=== PATIENT | male | born 1950 | race Caucasian/White ===

== ENCOUNTER → 2016-10-27 | Outpatient (CLI) | payer OTHER | END | disposition home or self-care (01) | LOC: LAB.O 08:44 | PROVIDERS: ATTEND Internal Medicine Gastroenterology | DX: B18.2 Chronic viral hepatitis C (principal) ==

== ENCOUNTER → 2016-11-10 | Outpatient (CLI) | payer OTHER | LOC: LAB.O 15:45 | PROVIDERS: ATTEND Internal Medicine Gastroenterology | DX: B18.2 Chronic viral hepatitis C (principal) ==

== ENCOUNTER → 2016-12-14 | Outpatient (CLI) | payer OTHER | END | disposition home or self-care (01) | LOC: LAB.O 09:51 | PROVIDERS: ATTEND Internal Medicine Gastroenterology | DX: B18.2 Chronic viral hepatitis C (principal) ==

== ENCOUNTER → 2017-01-04 | Outpatient (CLI) | payer OTHER | END | disposition home or self-care (01) | LOC: LAB.O 10:20 | PROVIDERS: ATTEND Internal Medicine Gastroenterology | DX: B18.2 Chronic viral hepatitis C (principal) ==

== ENCOUNTER → 2017-02-02 | Outpatient (CLI) | payer OTHER | END | disposition home or self-care (01) | LOC: LAB.O 08:39 | PROVIDERS: ATTEND Internal Medicine Gastroenterology | DX: B18.2 Chronic viral hepatitis C (principal) ==

== ENCOUNTER → 2017-02-08 | Outpatient (CLI) | payer OTHER | END | disposition home or self-care (01) | LOC: LAB.O 11:08 | PROVIDERS: ATTEND Internal Medicine Gastroenterology | DX: B18.1 Chronic viral hepatitis B without delta-agent (principal) ==

== ENCOUNTER → 2017-04-05 | Outpatient (CLI) | payer OTHER, MEDICARE ==
--- NOTE | 2017-04-05 11:30 | CT ---
Procedure: CT ABDOMEN PELVIS WITHOUT THEN WITH IV CONTRAST Exam Date: 04/05/2017 Ordering Provider: HARIKA STOUT Clinical Indication: Incisional HERNIA Comparison: None TECHNIQUE: 5 mm images were taken through the abdomen and pelvis before and after the administration of nonionic intravenous contrast material. 5 minute delays were also obtained. Oral contrast was not administered. Coronal and sagittal reformatted images were generated. This exam was performed according to our departmental dose optimization program which includes use of automated exposure control, adjustment of the mA and/or kV according to patient size and/or use of iterative reconstruction technique. FINDINGS: Lower chest: Nonacute Abdomen: Liver and biliary system: Unremarkable. No calcified gallstones. Spleen: Unremarkable Pancreas: Unremarkable Adrenal glands: Unremarkable Kidneys, ureters, bladder: Subcentimeter low-density lesions in both kidneys are too small to characterize. There is a 2.7 cm cyst in the upper pole the right kidney. Renal collecting systems and opacified portions of the ureters are unremarkable. No hydronephrosis in either kidney. Urinary bladder is unremarkable. Lymph nodes: No lymphadenopathy Retroperitoneum, abdominal wall, peritoneal cavity: No ascites. No free intraperitoneal air. There are several fat-containing ventral hernias at the midline. Small fat-containing umbilical hernia. There is infiltration of the superficial soft tissues just anterior to the lower left rectus abdominis musculature as well as a fat-containing hernia at this level on axial images 52 through 55 Vessels: No abdominal aortic aneurysm. There is ectasia of the infrarenal abdominal aorta. Aortic calcification. Pelvis: Lymph nodes: No lymphadenopathy Bowel: No bowel obstruction. Postsurgical changes in the rectosigmoid colon. Scattered metallic densities in the right lower quadrant may be related to prior surgery. No bowel wall thickening. Pelvic organs: Unremarkable Bones: Nonacute IMPRESSION: 1. No acute abnormalities in the abdomen or pelvis. 2.There are several fat-containing ventral hernias at the midline as well as a small fat-containing umbilical hernia. 3. There is infiltration of the superficial soft tissues just anterior to the lower left rectus abdominis musculature as well as a fat-containing hernia at this level. 4. Right renal cyst. Electronically signed by: Mukesh Agarwal MD 04/05/2017 11:28 AM CDT
== END ==
LOC: CT 08:16
PROVIDERS: ATTEND Surgery
DX: K43.2 Incisional hernia without obstruction or gangrene (principal); K42.9 Umbilical hernia without obstruction or gangrene; N28.1 Cyst of kidney, acquired

== ENCOUNTER → 2017-06-27 | Outpatient (CLI) | payer OTHER, MEDICARE | END | disposition home or self-care (01) | LOC: GMAJ 12:48 | PROVIDERS: ATTEND Family Medicine | DX: Z12.5 Encounter for screening for malignant neoplasm of prostate (principal); I10 Essential (primary) hypertension ==

== ENCOUNTER → 2017-07-28 | Outpatient (CLI) | payer OTHER, MEDICARE ==
--- NOTE | 2017-07-28 15:00 | US ---
EXAM DESCRIPTION: Carotid Duplex CLINICAL HISTORY: BRUIT COMPARISON: None Available. TECHNIQUE: Bilateral duplex carotid sonography with grayscale, color Doppler imaging, and spectral pulse Doppler evaluation. FINDINGS: On the right, the common carotid artery is tortuous with mild intimal thickening and focal plaque at the origin of the external carotid artery with no significant stenosis identified at the origin of the ICA or along its course. Peak CCA velocities are present proximally at 66/18 cm/s. The ICA demonstrates peak velocities of 72/30 cm/s distally with an ICA/CCA ratio of 1.1. Antegrade flow in the external carotid artery and vertebral is demonstrated. On the left common carotid artery is tortuous with intimal thickening with peak CCA velocities of 55/17 cm/s. Bifurcation appears widely patent. Peak ICA velocity is 69/26 cm/s. Antegrade flow in the external carotid and vertebral is demonstrated. The ICA/CCA ratio is 1.2. IMPRESSION: Minimal intimal thickening and surface plaque without significant stenosis or velocity acceleration in either carotid system. Antegrade flow both vertebral arteries. Electronically signed by: Lucas Mills MD 07/28/2017 2:59 PM [employer]INC[employer] ARCHITECT
== END | disposition home or self-care (01) ==
LOC: US 10:50
PROVIDERS: ATTEND Family Medicine
DX: R09.89 Other specified symptoms and signs involving the circulatory and respiratory systems (principal)

== ENCOUNTER → 2018-07-04 | Outpatient (CLI) | payer MEDICARE, OTHER | LOC: GMAJ 10:46 | PROVIDERS: ATTEND Family Medicine | DX: Z12.5 Encounter for screening for malignant neoplasm of prostate (principal) ==

== ENCOUNTER → 2018-07-06 | Outpatient (CLI) | payer MEDICARE, OTHER ==
--- NOTE | 2018-07-09 08:11 | CT ---
EXAM DESCRIPTION: Chest w/o Contrast CLINICAL HISTORY: TOBACCO ABUSE COMPARISON: None available TECHNIQUE: Chest CT was performed without IV contrast. This exam was performed according to our departmental dose-optimization program, which includes automated exposure control, adjustment of the mA and/or kV according to patient size and/or use of iterative reconstruction technique. FINDINGS: The thyroid and thoracic inlet are unremarkable. Coronary artery calcifications are present. No thoracic aortic aneurysm. No mediastinal or hilar adenopathy. Trace amount of pericardial fluid. No pleural effusion. The central airways are clear. No airspace consolidation or lung mass. No lung nodule is identified. There is a 3 cm cyst superior pole right kidney. Included portions of the upper abdomen are otherwise unremarkable for noncontrast technique. Degenerative changes are present in the thoracic spine at multiple levels. No fracture or pneumothorax. IMPRESSION: Coronary artery disease and degenerative changes, otherwise unremarkable exam. 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
== END ==
LOC: CT 11:04
PROVIDERS: ATTEND Family Medicine
DX: F17.218 Nicotine dependence, cigarettes, with other nicotine-induced disorders (principal); I25.10 Atherosclerotic heart disease of native coronary artery without angina pectoris

== ENCOUNTER → 2018-07-22 | Outpatient (CLI) | payer MEDICARE, OTHER | LOC: SL 20:08 | PROVIDERS: ATTEND Family Medicine | DX: G47.10 Hypersomnia, unspecified (principal); G47.00 Insomnia, unspecified; I10 Essential (primary) hypertension; R06.83 Snoring ==

== ENCOUNTER → 2019-09-04 | Outpatient (CLI) | payer MEDICARE, BC | LOC: GMAJ 11:46 | PROVIDERS: ATTEND Family Medicine | DX: R22.9 Localized swelling, mass and lump, unspecified (principal) ==

== ENCOUNTER → 2019-09-11 | Outpatient (CLI) | payer MEDICARE, BC | LOC: GMAJ 10:43 | PROVIDERS: ATTEND Family Medicine | DX: Z12.5 Encounter for screening for malignant neoplasm of prostate (principal); E78.2 Mixed hyperlipidemia; I10 Essential (primary) hypertension ==

== ENCOUNTER → 2020-01-16 | Outpatient (CLI) | payer MEDICARE, BC | LOC: GMAJ 15:05 | PROVIDERS: ATTEND Family Medicine | DX: M79.672 Pain in left foot (principal) ==

== ENCOUNTER → 2020-03-10 | Outpatient (CLI) | payer MEDICARE, BC, OTHER ==
--- NOTE | 2020-03-11 11:47 | CT ---
Procedure: CT LUNG SCREENING Exam Date: 10 March 2020. Ordering Provider: Pj Chand Clinical Indication: PERSONAL HX OF NICOTINE DEPENDENCE . Current cigarette smoker. 30 pack years. This patient meets eligibility criteria for low-dose CT lung cancer screening. Comparison: CT scan of the chest without contrast June 2018. Technique: Using a multislice scanner, sequential helical axial imaging was obtained in the thorax, 2.5 mm thickness, 2.5 mm separation, from the level of the thoracic inlet through the lung bases without IV contrast. A low dose protocol was utilized for BMI greater than 30: BMI: 37. CTDI: 2.93 mGy. 120. kVp. 75 mA. DLP 109 mGy-cm. 2D sagittal and coronal reconstructed images, 6.0 mm thickness, were obtained. This exam was performed according to our departmental dose optimization program which includes use of automated exposure control, adjustment of the mA and/or kV according to patient size and/or use of iterative reconstruction technique. Nodule measurements under 10 mm are given as mean value of 3 axes diameters. FINDINGS: Lungs and large airways: Resolution limited by patient large body habitus. Bilateral posterior dependent atelectasis in the bases. No abnormal nodules and no masses. No interval or new infiltrates. Thickening of the inferior left major fissure and adjacent scarring in the lingula. Pleura and space: Minimal thickening Mediastinum and ariella: evaluation limited by low dose technique and lack of IV contrast. No enlarged lymph nodes and no dominant soft tissue mass. Heart and great vessels: Atherosclerotic calcification of the coronary arteries, several brachiocephalic vessels, and aortic arch. Chest wall, lower neck, axillae: Evaluation also limited by same factors as described above. Evaluation also limited due to upper extremities alongside the chest. No dominant soft tissue masses. Upper abdomen: Evaluation limited by low-dose technique. Atherosclerotic calcifications. Normal size and density of the included adrenal glands and spleen. . Osseous structures: Evaluation limited by low dose MIP technique. Spondylosis at multiple vessels with disc calcifications. 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 No destructive or lytic lesions IMPRESSION: Limited due to patient body habitus. Pleural thickening and scattered pleural parenchymal scarring/thickening. No abnormal nodule and no mass. No interval or focal infiltrate. [facility] Best Practice Recommendations: please see below for Lung RADS category and FOLLOW-UP.* *Lung RADS category Category 1 - No nodule or definitely benign nodules (probability of malignancy less than 1%). Follow-up: Continue annual screening with Low Dose Chest CT in 12 months. Electronically signed by: Mateo Shields MD 03/11/2020 11:45 AM CDT
== END ==
LOC: CT 09:00
PROVIDERS: ATTEND Family Medicine
DX: Z87.891 Personal history of nicotine dependence (principal); J92.9 Pleural plaque without asbestos

== ENCOUNTER → 2020-05-18 | Outpatient (CLI) | payer MEDICARE, BC, OTHER | LOC: GMAJ 10:57 | PROVIDERS: ATTEND Family Medicine | DX: D51.0 Vitamin B12 deficiency anemia due to intrinsic factor deficiency (principal); I10 Essential (primary) hypertension; E78.2 Mixed hyperlipidemia; M10.00 Idiopathic gout, unspecified site ==

== ENCOUNTER → 2020-09-22 | Outpatient (CLI) | payer MEDICARE, BC, OTHER | LOC: GMAJ 11:42 | PROVIDERS: ATTEND Family Medicine | DX: Z12.5 Encounter for screening for malignant neoplasm of prostate (principal); I10 Essential (primary) hypertension; E78.2 Mixed hyperlipidemia ==